=== PATIENT | female | born 1960 | race Caucasian/White ===

== ENCOUNTER 2017-01-14 03:00 | Inpatient (IN) | payer OTHER ==
[~2017-01-14] VITALS: Ht 172.7 cm; Wt 93.0 kg
[~2017-01-14 03:00] MED LIST: ATENOLOL50 M1 PO; NEURONTIN300 M1; NUCYNTA; PREMPRO 0.45-11 EACH PO; SINGULAIR10 M1 PO; VICODIN
--- NOTE | 2017-01-14 10:49 | Admission Core Measures ---
Admission Meds I reviewed the following Meds: Current Medications Sig/Juanpablo Start time Last Medication Dose Stop Time Status Admin Cefazolin Sodium 2,000 MG ONCE 01/14 0000 NR (Kefzol-Ancef Inj) 01/14 9611 Acute Coronary Syndrome Inclusion Criteria ACS Diagnosis No Inpatient Core Measures LDL Reminder: If No, please order W/I first 24hr of stay Congestive Heart Failure Inclusion Criteria CHF Diagnosis No Cerebrovascular accident Inclusion Criteria CVA/TIA Diagnosis No Inpatient Core Measures Bedside Swallow Eval Reminder: If BSE failed, place ST order Antithrombotic Reminder: Order Antithrombotic Medication by end of day 2 Antithrombotic Reminder: Document Reason Antithrombotic Not ordered by end of day 2 AFIB/Flutter Reminder: If Present, add to problem list AFIB/Flutter Reminder: Order Anticoag Medication for pts with AFIB/Flutter Atherosclerosis Reminder: If Present, add to problem list LDL Reminder: If No, please order W/I first 24hr of stay PT Order Reminder: If No, please order Venous thromboembolism Inpatient Core Measures VTE Risk Factors: Age > 40, Surgery No Mech VTE prophylaxis d/t No contraindications No VTE Pharm Prophylaxis d/t No contraindications Inclusion Criteria - Per Current guidelines, there needs to be overlap - treatment for the first 5 days of Warfarin therapy. - Parenteral Anticoagulation (IV or SC) needs to be - given along with Warfarin therapy. VTE Diagnosis No VTE Type NONE VTE Confirmed by (Test) NONE Problem List As ranked by this Provider includes Assessment & Plan 1. Unilateral primary osteoarthritis, right hip HOME MEDS Home Med List Atenolol 50 MG TABLET 1 TAB PO 2X PER SAY HTN (Reported) Conjugated Estrogen Medroxypr (Prempro 0.45-1.5 MG Tablet) 0.45 MG-1.5 MG TABLET 1 TAB PO DAILY POST MENOPAUSE (Reported) Montelukast Sodium (Singulair) 10 MG TABLET 1 TAB PO DAILY ALLERGIES ( Reported)
[2017-01-14] MEDS ORDERED: COLACE100 M1 PO (11:46)
[2017-01-14] MEDS ORDERED: MS CONTIN30 M1 PO (11:46)
[2017-01-14] MEDS ORDERED: MIRALAX17 G1 PO (11:46)
[2017-01-14] MEDS ORDERED: DILAUDID2 M1 PO (11:46)
[2017-01-14] MEDS ORDERED: ASPIRIN EC325 M2 PO (11:46)
--- NOTE | 2017-01-14 11:54 | Patient Discharge Instructions ---
Discharge Instructions General Discharge Information You were seen/treated for: RIGHT HIP PAIN You had these procedures: RIGHT TOTAL HIP REPLACEMENT Watch for these problems: INCREASING PAIN DESPITE THE USE OF PAIN MEDICATION. INCREASING REDNESS, WARMTH, SWELLING. DRAINAGE OF ANY TYPE FROM INCISION. INABILITY TO BEAR WEIGHT ON RIGHT LEG. FEVER GREATER THAN 101.5. Do not soak the wound: Yes No bath, but you may shower: Yes Other wound care: KEEP WOUND CLEAN AND DRY NO OINTMENTS OF ANY TYPE ON OR NEAR INCISION, NO EXCEPTIONS. DAILY DRY DRESSING CHANGES STARTING POST OP DAY 2. Special Instructions: COLACE AND MIRALAX FOR BOWEL HEALTH TO PREVENT CONSTIPATION ASSOCIATED WITH PAIN MEDICATION. ASPIRIN 325 MG TO BE TAKEN TWICE DAILY TO PROTECT YOU AGAINST DEVELOPING A BLOOD CLOT. TAKE WITH FOOD IN ORDER TO PROTECT YOUR STOMACH. Diet Continue normal diet: Yes Recommended Diet: Regular Additional DIET Information: ADVANCE TOLERATED Activity Full Activity/No Limits: No Activity Self Limited: Yes Pounds, do NOT lift more than: 10 Additional ACTIVITY Info: WEIGHT BEAR TOLERATED ON RIGHT LEG. Acute Coronary Syndrome Inclusion Criteria At DC or during hospital stay patient has or had the following: ACS DIAGNOSIS No Discharge Core Measures Meds if any: Prescribed or Continued at Discharge Meds if any: NOT Prescribed or Continued at Discharge Congestive Heart Failure Inclusion Criteria At DC or during hospital stay patient has or had the following: CHF DIAGNOSIS No Discharge Core Measures Meds if any: Prescribed or Continued at Discharge Meds if any: NOT Prescribed or Continued at Discharge Cerebrovascular accident Inclusion Criteria At DC or during hospital stay patient has or had the following: CVA/TIA Diagnosis No Discharge Core Measures Meds if any: Prescribed or Continued at Discharge Meds if any: NOT Prescribed or Continued at Discharge Venous thromboembolism Inclusion Criteria VTE Diagnosis No VTE Type NONE VTE Confirmed by (Test) NONE Discharge Core Measures - Per Current guidelines, there needs to be overlap - treatment for the first 5 days of Warfarin therapy. - If discharged on Warfarin prior to 5 days of - overlap therapy, the patient will need to be - assessed for post discharge needs including - *Post discharge parental anticoagulation - *Warfarin and/or parental anticoagulation education - *Follow up date to check INR post discharge At least 5 days overlap therapy as Inpatient No Meds if any: Prescribed or Continued at Discharge Note: Overlap Therapy is Warfarin and Anticoagulant Meds if any: NOT Prescribed or Continued at Discharge
--- NOTE | 2017-01-14 11:58 | Surgical Discharge Summary ---
Visit Information Visit Dates Admission Date: 01/14/17 Discharge Date: 01/15/17 History of Present Illness Chief Complaint: RIGHT HIP PAIN Medical History Isolation History: Standard Surgical History Pertinent Surgical History: non-contributory Review of Systems: SEE H&P Hospital Course Course Attending Physician: SEBASTIEN CHANG MD Primary Care Physician: MIL WALLIS,[facility] Course: RICHARD WAS ADMITTED TO THE HOSPITAL ON 01/14/2017 FOR AN ELECTIVE RIGHT TOTAL HIP REPLACEMENT. SHE TOLERATED THE PROCEDURE WELL AND WAS TRANSFERRED TO A GENERAL SURGICAL FLOOR. THERE, HER VITAL SIGNS WERE STABLE AND WITHIN NORMAL LIMITS. HER NERUOVASCUALR STATUS REMAINED INTACT. HER DIET WAS ADVANCED AND TOLERATED. HER PAIN WAS CONTROLLED WITH PO PAIN MEDICATIONS. SHE VOIDED SPONTANEOUSLY. SHE WAS EVALUATED AND TREATED BY PHYSICAL THERAPY AND DEEMED APPROPRIATE FOR DISCHARGE. Allergies: Coded Allergies: acetaminophen (From PERCOCET) (Intermediate, ITCH 01/12/17) adhesive (Intermediate, RASH 01/12/17) codeine (Intermediate, ITCH 01/12/17) iodine (Intermediate, RASH 01/12/17) latex (Intermediate, RASH 01/12/17) oxycodone (From PERCOCET) (Intermediate, ITCH 01/12/17) Disposition Summary Disposition Principal Diagnosis: RIGHT HIP UNILATERAL PRIMARY OSTEOARTHRITIS Additional Diagnosis: NONE Discharge Disposition: home health services Discharge Instructions General Discharge Information Code Status: Full Code Patient's Diet: REGULAR, ADVANCE TOLERATED Patient's Activity: WBAT Follow-Up Instructions/Appts: FOLLOW UP WITH DR. CHANG IN 6 WEEKS FROM DATE OF SURGERY Medications at Discharge Discharge Medications: Stop taking the following medications: [VICODIN] as needed for PAIN [NUCYNTA ER] 150 MG TWICE DAILY Continue taking these medications: Atenolol (Atenolol) 50 MG TABLET 1 Tablet ORAL TWICE DAILY Conjugated Estrogen Medroxypr (Prempro 0.45-1.5 MG Tablet) 0.45 MG-1.5 MG TABLET 1 Tablet ORAL DAILY Gabapentin (Neurontin) 300 MG CAPSULE TWICE DAILY Instructions: I TAB AT NOON,,, 2 TABS AT HS Montelukast Sodium (Singulair) 10 MG TABLET 1 Tablet ORAL DAILY Start taking the following new medications: Aspirin (Ecotrin*) 325 MG TABLET. 1 Tablet ORAL TWICE DAILY Qty = 60 No Refills Docusate Sodium (Colace) 100 MG CAPSULE 1 Capsule ORAL TWICE DAILY Qty = 14 No Refills Instructions: DISCONTINUE USE IF YOU DEVELOP LOOSE STOOL OR DIARRHEA Polyethylene Glycol 3350 (Miralax) 17 GRAM POWD.PACK 1 Packet ORAL DAILY Qty = 7 No Refills Instructions: dissolve in water, DISCONTINUE USE IF YOU DEVELOP LOOSE STOOL OR DIARRHEA Morphine Sulfate (Ms Contin) 30 MG TABLET.ER 1 Tablet ORAL THREE TIMES DAILY Qty = 9 No Refills Hydromorphone HCl (Dilaudid) 4 MG TABLET 1-2 Tablet ORAL Every 4 hours as needed for PAIN Qty = 36 No Refills
--- NOTE | 2017-01-14 12:18 | RADIOLOGY REPORT ---
EXAMINATION: XR HIP, RIGHT CLINICAL INFORMATION: Status post right total hip replacement. COMPARISON: None TECHNIQUE: AP and crosstable lateral views of the right hip. FINDINGS: The right total hip arthroplasty appears well-seated in near-anatomic alignment. There is scattered air in the soft tissues. IMPRESSION: Intact right total hip arthroplasty. Expected postoperative changes.
[2017-01-14 13:37] VITALS: BP 132/80
--- NOTE | 2017-01-14 14:22 | PN- Orthopedic ---
Subjective Subjective: POST-OP NOTE: No complaints. Not yet out of bed. Denies dizziness. No shortness of breath. No chest pains. Tolerating clears. No nausea. Due to void this afternoon. Objective Vital Signs and I&Os Vital Signs Date Time Temp Pulse Resp B/P B/P Pulse O2 O2 Flow FiO2 Mean Ox Delivery Rate 01/14 1337 98.1 75 18 132/80 94 Room Air Intake & Output 01/14 1600 01/14 0801/14 0000 01/13 1600 01/13 0801/13 0000 Intake Total Output Total Balance Patient 205 lb Weight Physical Exam: General - alert & oriented x 3. comfortable. no acute distress. Lungs - clear bilaterally. no w/r/r. Cardiac - s1s2. reg. Abdomen - soft. nontender. Extremities - warm bilaterally hip dressing c/d/i. no hematoma. nvi. calves soft and nontender b/l. Assessment/Plan Assessment/Plan This 56 year old white female with hx htn, low back pain, allergies is POD#0 s/p right total hip replacement, anterior approach advance diet as tolerated pain control as ordered asa bid ancef x 2 doses PT eval f/u am labs due to void this afternoon home meds, including beta stephanie, are ordered will d/w Core Measures/Miscellaneous Venous Thromboembolism VTE Risk Factors: Age > 40, Surgery VTE Contraindications: No Contraindications VTE Diagnosis: No VTE Type: NONE VTE Confirmed by (Test): NONE Beta Stephanie Is Beta Stephanie a Home Med? Yes Antibiotics Is Patient on Antibiotics? Yes If Yes: prophylaxis
[2017-01-14 14:47] VITALS: BP 142/86
--- NOTE | 2017-01-14 18:32 | Operative Report ---
Operative/Inv Procedure Report Surgery Date: 01/14/17 Name of Procedure: Right total hip replacement Pre-Operative Diagnosis: Primary right hip DJD Post-Operative Diagnosis: Same Estimated Blood Loss: 250 Surgeon/Hoist Operator: BERNARDO WALLIS,SEBASTIEN Mascorro Anesthesia: block Operative/Procedure Note Note: Description of Procedure: The patient was taken to the operating room and positively identified. After induction of spinal anesthesia and administration of appropriate pre-operative antibiotics, the patient was positioned supine on the operating room table and all bony prominences were well padded. After performing a surgical timeout, the right lower extremity was prepped and draped in the usual sterile fashion. A direct anterior approach was made to the right hip. The incision was carried sharply through superficial soft tissues to the level of the fascia. Meticulous hemostasis was maintained with Bovie electocautery. The fascia over the tensor fascia jignesh muscle was opened sharply and the interval between the TFL and the sartorius was entered bluntly taking care to stay lateral to the lateral femoral cutaneous nerve. Retractors were placed around the femoral neck and the pericapsular fat was identified. The ascending branches of the lateral femoral circumflex vessels were identified and carefully coagulated. The pericapsular fat and anterior capsule were then resected. A napkin ring osteotomy was performed and the femoral head was removed without difficulty. Attention was then turned to the acetabulum. After appropriate placement of retractors, the acetabulum was exposed. Soft tissue was cleaned from the acetabular margin and notch. Overhanging osteophytes were removed and the teardrop was exposed. The acetabulum was then sequentially reamed to accept a 56 mm Beulah Tritanium hemispherical solid back shell. This was impacted into place in the appropriate position and fitted with a 32 mm Trident X3 zero degree polyethylene insert. Attention was then turned to the femur. After performing the appropriate ligament releases, the proximal femur was exposed. It was then sequentially broached to accept a size 4 Beulah Accolade 2 stem. This was trialed for leg length and stability. The trial component was removed and the final component was impacted into place. The trunnion was carefully cleaned and fit with a 32 mm, -4 Biolox delta ceramic femoral head. The hip was reduced and put through a full range of motion and found to be stable. The articular space was then irrigated with sterile saline. The periarticular soft tissues were infilitrated with Marcaine. The fascial layer was closed with interrupted #1 vicryl suture and the skin was re-approximated with interrupted 2 -0 vicryl. The skin was closed with a running 3-0 V-Lock suture. Steri-strips and a sterile dressing were applied. The patient was awakened and taken to the recovery room in satisfactory condition.
[2017-01-14 23:04] VITALS: BP 142/80
[2017-01-15 07:12] VITALS: BP 126/80
[2017-01-15] MEDS ORDERED: DILAUDID4 M1 PO (08:30)
--- NOTE | 2017-01-15 08:32 | PN- Orthopedic ---
Subjective Subjective: Awake, alert No complaints overnight Pt has chronic back pain issues but states her postop pain is baseline tolerable Worked with PT yesterday Tolerating diet - no nausea Objective Vital Signs and I&Os Vital Signs Date Time Temp Pulse Resp B/P B/P Pulse O2 O2 Flow FiO2 Mean Ox Delivery Rate 01/15 0712 98.2 77 20 126/80 93 Room Air 01/14 2304 98.4 80 20 142/80 93 Room Air 01/14 1447 98.2 73 20 142/86 95 01/14 1337 98.1 75 18 132/80 94 Room Air Intake & Output 01/15 1600 01/15 0800 01/15 0000 01/14 1600 01/14 0800 01/14 0000 Intake Total 1170 1100 Output Total 500 500 Balance 670 600 Intake, IV 930 600 Intake, Oral 240 500 Number 0 Bowel Movements Output, Urine 500 500 Patient 205 lb Weight Physical Exam: VSS, afebrile, good urine output General: alert and oriented times three Chest: clear anteriorly bilaterally, RRR Abd: soft, good bs Ext: warm, no edema, positive sensate, no calf tenderness Wound: dressed, dry Assessment/Plan Assessment/Plan 56 yo female s/p R THR pod 1 PT - wbat dc planning for home with home services once cleared by PT pain management - dilaudid 4mg 1-2 tab q4hp plus ms contin 30mg po tid per Dr Galvan Hold preop home pain meds while taking new regimen Core Measures/Miscellaneous Venous Thromboembolism VTE Risk Factors: Age > 40, Surgery VTE Contraindications: No Contraindications VTE Diagnosis: No VTE Type: NONE VTE Confirmed by (Test): NONE Beta Stephanie Is Beta Stephanie a Home Med? Yes Antibiotics Is Patient on Antibiotics? No If Yes: prophylaxis
[2017-01-15 08:42] LABS: ABSOLUTE BASOPHIL COUNT 0 /CUMM (0.0-0.2); ABSOLUTE EOSINOPHIL COUNT 0.1 /CUMM (0.0-0.7); ABSOLUTE GRANULOCYTE CT 5.5 /CUMM (1.4-6.5); ABSOLUTE LYMPH COUNT 2.4 /CUMM (1.2-3.4); ABSOLUTE MONOCYTE COUNT 0.5 /CUMM (0.10-0.60); BASOPHIL % 0.4 % (0.0-2.0); EOSINOPHIL % 0.6 % (0-5); GRANULOCYTE % 64.4 % (42.2-75.2); HEMATOCRIT 37.8 % (37-47); MEAN CORPUSCULAR HGB 33.7 PG (27.0-31.0); MEAN CORPUSCULAR VOLUME 99.3 FL (81.0-99.0); MEAN PLATELET VOLUME 8.2 FL (7.4-10.4); PLATELET COUNT 155 /CUMM (130-400); RBC DISTRIBUTION WIDTH 12.2 % (11.5-14.5); RED BLOOD CELL CT 3.81 /CUMM (4.20-5.40); WHITE BLOOD CELL COUNT 8.5 /CUMM (4.8-10.8)
[2017-01-15 09:20] VITALS: BP 126/80
== END 2017-01-15 14:30 | DRG 470 ==
LOC: SDA 03:00 → 2NA 03:00 → SDA 07:00 → EDBD 07:00 → ENRESERV 11:27 → 2NA 13:03 → ENPENDDIS 01-15 11:19 → 2NA 01-15 14:30
PROVIDERS: Nurse Practitioner; ADMIT Orthopaedic Surgery
PROC: 0SR904A Replacement of Right Hip Joint with Ceramic on Polyethylene Synthetic Substitute, Uncemented, Open Approach (ICD-10-PCS; principal; 2017-01-14)
DX: M16.11 Unilateral primary osteoarthritis, right hip (principal); I10 Essential (primary) hypertension; Z87.891 Personal history of nicotine dependence
CPT/HCPCS: 2NASP; 73502-RT; 82436; 88304; 97110-GO; 97116-GO; 97161-GP; 97530-GO; J0131; J0690; J0735; J1100; J2405; J2550; J7042

== ENCOUNTER 2018-02-03 02:39 | Inpatient (IN) | payer OTHER ==
[~2018-02-03] VITALS: Ht 172.7 cm; Wt 104.0 kg
[~2018-02-03 02:39] MED LIST changes: +ASPIRIN EC325 M2 PO; +CALTRATE 600 +1 EACH PO; +COLACE100 M1 PO; +DILAUDID2 M1 PO; +DILAUDID4 M1 PO; +FENOFIBRATE134 M1 PO; +HYDROCODON-ACE1 EAC1 PO; +MIRALAX17 G1 PO; +MS CONTIN30 M1 PO; +NUCYNTA ER150 M1; +OMEPRAZOLE40 M1 PO; +ZYRTEC10 M3 PO
--- NOTE | 2018-02-03 09:22 | Admission Core Measures ---
Acute Coronary Syndrome (CM) ACS Core Measures Acute Coronary Syndrome Diagnosis No Congestive Heart Failure (NEW) CHF Core Measures Congestive Heart Failure Diagnosis No Cerebrovascular Accident (NEW) CVA Core Measures CVA/TIA Diagnosis No Venous Thromboembolism VTE Core Cadence (View Protocol) VTE Risk Factors Surgery No Mechanical VTE Prophylaxis d/t N/A MechProphylax Ordered No VTE Pharm Prophylaxis d/t NA PharmProphylax ordered Problem List As ranked by this Provider includes Assessment & Plan 1. Unilateral primary osteoarthritis, left hip HOME MEDS Home Med List Atenolol 50 MG TABLET 1 TAB PO BID HTN (Reported) Calcium Carbonate/Vitamin D3 (Caltrate 600 + D Tablet) 600 MG-800 TABLET 1 TAB PO DAILY SUPPLEMENT (Reported) Cetirizine HCl (Zyrtec) 10 MG TABLET 1 TAB PO DAILY ALLERGIES (Reported) Fenofibrate,Micronized (Fenofibrate) 134 MG CAPSULE 1 CAP PO DAILY CHOLESTEROL (Reported) Hydrocodone/Acetaminophen (Hydrocodon-Acetaminophn 10-325) 10 MG-325 MG TABLET 1 TAB PO 4XDP PAIN (Reported) Montelukast Sodium (Singulair) 10 MG TABLET 1 TAB PO DAILY ALLERGIES ( Reported) Omeprazole 40 MG CAPSULE.DR 1 CAP PO DAILY GERD (Reported)
[2018-02-03] MEDS ORDERED: ASPIRIN EC325 M2 PO (09:26)
[2018-02-03] MEDS ORDERED: COLACE100 M1 PO (09:26)
[2018-02-03] MEDS ORDERED: DILAUDID2 M1 PO (09:26)
[2018-02-03] MEDS ORDERED: MIRALAX17 G1 PO (09:26)
--- NOTE | 2018-02-03 09:32 | Patient Discharge Instructions ---
Discharge Instructions General Discharge Information You were seen/treated for: Left hip pain related to unilateral primary osteoarthritis You had these procedures: Left total hip replacement Watch for these problems: Increasing pain despite the use of pain medication Increasing redness, warmth or swelling Drainage of any type from incision Inability to bear weight on operative leg Persistent nausea and vomiting Fever greater than 101.5 degrees Do not soak the wound: Yes No bath, but you may shower: Yes Other wound care: Please keep wound clean and dry. No ointments or lotions of any type on or near incision at any time. No exceptions. Your dressing will be changed by your nurse on the second day after your surgery. Daily dry dressing changes are recommended each day thereafter. Do not soak your wound in a bath at any time until otherwise indicated by your surgeon. You may shower, please dry wound immediately after shower with a clean towel. Special Instructions: Aspirin: You are taking this medication to help prevent blood clot formation. Please take with food to protect your stomach lining. Please take as directed. Constipation: Pain medication can cause constipation. Dr. Galvan has recommended that you take Colace and miralax each day. You may discontinue this medication if you develop loose stool or diarrhea. If you wish to continue this medication, it is available over the counter. If you are unable to move your bowels after several days, if you are unable to pass gas and are developing bloating, nausea, or vomiting as a result, please contact your doctor. Diet Continue normal diet: Yes Recommended Diet: Regular Activity Full Activity/No Limits: No Activity Self Limited: Yes Pounds, do NOT lift more than: 10 Acute Coronary Syndrome Inclusion Criteria At DC or during hospital stay patient has or had the following: ACS DIAGNOSIS No Discharge Core Measures Meds if any: Prescribed or Continued at Discharge Meds if any: NOT Prescribed or Continued at Discharge Congestive Heart Failure Inclusion Criteria At DC or during hospital stay patient has or had the following: CHF DIAGNOSIS No Discharge Core Measures Meds if any: Prescribed or Continued at Discharge Meds if any: NOT Prescribed or Continued at Discharge Cerebrovascular accident Inclusion Criteria At DC or during hospital stay patient has or had the following: CVA/TIA Diagnosis No Discharge Core Measures Meds if any: Prescribed or Continued at Discharge Meds if any: NOT Prescribed or Continued at Discharge Venous thromboembolism Inclusion Criteria VTE Diagnosis No VTE Type NONE VTE Confirmed by (Test) NONE Discharge Core Measures - Per Current guidelines, there needs to be overlap - treatment for the first 5 days of Warfarin therapy. - If discharged on Warfarin prior to 5 days of - overlap therapy, the patient will need to be - assessed for post discharge needs including - *Post discharge parental anticoagulation - *Warfarin and/or parental anticoagulation education - *Follow up date to check INR post discharge At least 5 days overlap therapy as Inpatient No Meds if any: Prescribed or Continued at Discharge Note: Overlap Therapy is Warfarin and Anticoagulant Meds if any: NOT Prescribed or Continued at Discharge
--- NOTE | 2018-02-03 09:34 | Surgical Discharge Summary ---
Visit Information Visit Dates Admission Date: 02/03/18 Discharge Date: 02/03/18 History of Present Illness Chief Complaint: Left hip pain related to unilateral primary osteoarthritis Medical History Neurological: NONE EENT: hearing loss Cardiovascular: NONE Respiratory: NONE Gastrointestinal: diverticulitis Hepatic: NONE Renal: NONE Musculoskeletal: disk herniation, rheumatoid arthritis Psychiatric: NONE Endocrine: NONE Blood Disorders: NONE Cancer(s): NONE LEASING CONSULTANT/Reproductive: OVARIAN CYST FALLOPIAN TUBE REMOVAL Surgical History Pertinent Surgical History: non-contributory Psychosocial History Services at Home: None Review of Systems: See H&P Hospital Course Course Attending Physician: Quincy Galvan MD Primary Care Physician: Per WALLIS,[facility] Course: Patient was admitted to the hospital for an elective total joint replacement. The procedure was tolerated well and patient was transferred to a general surgical floor. Diet was advanced and tolerated. The patient was evaluated and treated by physical therapy. At the time of hospital discharge, the vital signs were stable, neurovascular status was intact, and pain was controlled with the use of oral pain medications. Allergies: Coded Allergies: acetaminophen (From PERCOCET) (Intermediate, ITCH 01/29/18) adhesive (Intermediate, RASH 01/29/18) codeine (Intermediate, ITCH 01/29/18) iodine (Intermediate, RASH 01/29/18) latex (Intermediate, RASH 01/29/18) oxycodone (From PERCOCET) (Intermediate, ITCH 01/29/18) Significant Procedures: left linda Disposition Summary Disposition Principal Diagnosis: Left hip unilateral primary osteoarthritis Additional Diagnosis: None Discharge Disposition: home health services Discharge Instructions General Discharge Information Code Status: Full Code Patient's Diet: Regular, advance as tolerated Patient's Activity: WBAT Follow-Up Instructions/Appts: Follow up with Dr. Galvan in 6 weeks from date of surgery. Please call office to arrange &/or confirm this appointment. Medications at Discharge Discharge Medications: Stop taking the following medications: Hydrocodone/Acetaminophen (Hydrocodon-Acetaminophn 10-325) 10 MG-325 MG TABLET ORAL 4 times daily as needed Tapentadol HCl (Nucynta ER) 150 MG TAB.ER.12H Continue taking these medications: Atenolol (Atenolol) 50 MG TABLET 1 Tablet ORAL TWICE DAILY Gabapentin (Neurontin) 300 MG CAPSULE TWICE DAILY Instructions: I TAB AT NOON,,, 2 TABS AT HS Montelukast Sodium (Singulair) 10 MG TABLET 1 Tablet ORAL DAILY Fenofibrate,Micronized (Fenofibrate) 134 MG CAPSULE 1 Capsule ORAL DAILY Cetirizine HCl (Zyrtec) 10 MG TABLET 1 Tablet ORAL DAILY Omeprazole (Omeprazole) 40 MG CAPSULE.DR 1 Capsule ORAL DAILY Calcium Carbonate/Vitamin D3 (Caltrate 600 + D Tablet) 600 MG-800 TABLET 1 Tablet ORAL DAILY Start taking the following new medications: Aspirin (Ecotrin*) 325 MG TABLET.DR 1 Tablet ORAL TWICE DAILY Qty = 60 No Refills Docusate Sodium (Colace) 100 MG CAPSULE 1 Capsule ORAL TWICE DAILY Qty = 14 No Refills Instructions: DISCONTINUE USE IF YOU DEVELOP LOOSE STOOL OR DIARRHEA Polyethylene Glycol 3350 (Miralax) 17 GRAM POWD.PACK 1 Packet ORAL DAILY Qty = 7 No Refills Instructions: dissolve in water, DISCONTINUE USE IF YOU DEVELOP LOOSE STOOL OR DIARRHEA Hydromorphone HCl (Dilaudid) 2 MG TABLET 1-2 Tablet ORAL EVERY 4-6 HOURS NEEDED as needed for PAIN Qty = 36 No Refills
--- NOTE | 2018-02-03 10:17 | RADIOLOGY REPORT ---
EXAMINATION: XR HIP, LEFT CLINICAL INFORMATION: Left hip replacement COMPARISON: None TECHNIQUE: Two views of the left hip. FINDINGS: The components of the total hip arthroplasty are in their expected positions. There is estimated to be approximately 48 degrees of lateral version and 22 degrees of anteversion of the acetabular cup. The femoral head prosthesis is well centered within the acetabular cup. No acute periprosthetic femoral fracture. Postoperative soft tissue swelling and soft tissue gas around the left hip. IMPRESSION: Satisfactory position and alignment of components of the left total hip arthroplasty
--- NOTE | 2018-02-03 11:24 | Operative Report ---
Operative/Inv Procedure Report Surgery Date: 02/03/18 Name of Procedure: Left total hip replacement Pre-Operative Diagnosis: Left hip avascular necrosis Post-Operative Diagnosis: Same Estimated Blood Loss: 250 Surgeon/Health Teacher: Mandy WALLIS,Quincy Coronado Anesthesia: block Operative/Procedure Note Note: Description of Procedure: The patient was taken to the operating room and positively identified. After induction of spinal anesthesia and administration of appropriate pre-operative antibiotics, the patient was positioned supine on the operating room table and all bony prominences were well padded. After performing a surgical timeout, the left lower extremity was prepped and draped in the usual sterile fashion. A direct anterior approach was made to the left hip. The incision was carried sharply through superficial soft tissues to the level of the fascia. Meticulous hemostasis was maintained with Bovie electocautery. The fascia over the tensor fascia jignesh muscle was opened sharply and the interval between the TFL and the sartorius was entered bluntly taking care to stay lateral to the lateral femoral cutaneous nerve. Retractors were placed around the femoral neck and the pericapsular fat was identified. The ascending branches of the lateral femoral circumflex vessels were identified and carefully coagulated. The pericapsular fat and anterior capsule were then resected. A napkin ring osteotomy was performed and the femoral head was removed without difficulty. Attention was then turned to the acetabulum. After appropriate placement of retractors, the acetabulum was exposed. Soft tissue was cleaned from the acetabular margin and notch. Overhanging osteophytes were removed and the teardrop was exposed. The acetabulum was then sequentially reamed to accept a 54 mm Jean Tritanium hemispherical solid shell. This was impacted into place in the appropriate position and fitted with a 32 mm Trident X3 zero degree polyethylene insert. Attention was then turned to the femur. After performing the appropriate ligament releases, the proximal femur was exposed. It was then sequentially broached to accept a size #4 Jean Accolade 2 stem. This was trialed for leg length and stability. The trial component was removed and the final component was impacted into place. The trunnion was carefully cleaned and fit with a 32 mm, +0 Biolox delta ceramic femoral head. The hip was reduced and put through a full range of motion and found to be stable. The articular space was then irrigated with sterile saline. The periarticular soft tissues were infilitrated with Marcaine. The fascial layer was closed with interrupted #1 vicryl suture and the skin was re-approximated with interrupted 2 -0 vicryl. The skin was closed with a running 3-0 V-Lock suture. Steri-strips and a sterile dressing were applied. The patient was awakened and taken to the recovery room in satisfactory condition.
[2018-02-03 13:53] VITALS: BP 136/74
--- NOTE | 2018-02-03 14:20 | PN- Orthopedic ---
Subjective Subjective: poc s/p left linda no complaints atthis time deneis cp, sob, no n+v w2ith diet Objective Vital Signs and I&Os Vital Signs Date Time Temp Pulse Resp B/P B/P Pulse O2 O2 Flow FiO2 Mean Ox Delivery Rate 02/03 1353 98.2 66 18 136/74 94 Intake & Output 02/03 1600 02/03 0800 02/03 0000 02/02 1600 02/02 0800 02/02 0000 Intake Total Output Total Balance Patient 229 lb Weight Weight Reported by Patient Measurement Method Physical Exam: cv: rrr lungs: clear abd: soft, +bs ext: thigh soft, drsg dry distal cms intact Assessment/Plan Assessment/Plan ortho stable has clear pt for safety fro home d/c plan d/c according d/c plan f/u dr landaverde 6 weeks Core Measures Venous Thromboembolism VTE Risk Factors Surgery No Mechanical VTE Prophylaxis d/t N/A MechProphylax Ordered No VTE Pharm Prophylaxis d/t NA PharmProphylax ordered
== END 2018-02-03 17:20 | disposition home health service (06) | DRG 470 ==
LOC: SDA 02:39 → ENRESERV 09:45 → EDBEDREQ 09:56 → ENTRNSPT 10:15 → EDTRNSPTSTS 10:33 → EDTRNSPT 10:33 → 2NA 10:43 → CMPTRNSPT 11:13 → ENPENDDIS 14:22 → 2NA 17:20
PROC: 0SRB04A Replacement of Left Hip Joint with Ceramic on Polyethylene Synthetic Substitute, Uncemented, Open Approach (ICD-10-PCS; principal; 2018-02-03)
DX: M16.12 Unilateral primary osteoarthritis, left hip (principal); Z96.641 Presence of right artificial hip joint; G40.909 Epilepsy, unspecified, not intractable, without status epilepticus; H91.93 Unspecified hearing loss, bilateral; I10 Essential (primary) hypertension; K21.9 Gastro-esophageal reflux disease without esophagitis; M54.5 Low back pain; Z88.5 Allergy status to narcotic agent; Z91.040 Latex allergy status; Z79.891 Long term (current) use of opiate analgesic; J30.9 Allergic rhinitis, unspecified
CPT/HCPCS: 2NASP; 73502-LT; 97116-GO; 97161-GP; J0690; J0735; J2405; J2550; J3490; J7042